=== PATIENT | female | born 1945 | race Caucasian/White ===

== ENCOUNTER 2017-07-23 15:44 | Inpatient (IN) | payer OTHER ==
[~2017-07-23] VITALS: Ht 149.9 cm; Wt 77.0 kg
--- NOTE | ~2017-07-23 | DS ---
Unit #: [id number] #: [id number] Patient: MODESTA CAM [id number] [address] [place], [place] [address] [id number] I MR#: [id number] NAME: MODESTA CAM ROOM: 563 Age: 72 Sex: F Admission Date: 07/23/2017 : 1945 Discharge Date: 07/28/2017 Attending Physician: Jason Corona M.D. Primary Care Physician: Leona Lanier M.D. DISCHARGE SUMMARY DISCHARGE DIAGNOSES 1. Acute respiratory failure hypoxic. 2. Bronchopneumonia community acquired. 3. Acute exacerbation of congestive heart failure. 4. Bilateral pleural effusions. 5. Hypokalemia. 6. Diabetes mellitus, uncontrolled. HOSPITAL COURSE The patient is a 72-year-old woman with a history significant for congestive heart failure, and diabetes mellitus uncontrolled. She presented to the hospital with symptoms of shortness of breath and cough and was found to be hypoxic in the emergency room. The patient had a CAT scan of her lungs that demonstrated nodular opacities, which were also seen on her chest radiographs most consistent with multifocal areas of bronchopneumonia throughout the right lung and consolidation on the right lower lobe. During her admission, the patient was acutely treated with Rocephin and azithromycin for community-acquired pneumonia. During her admission, the patient had echocardiogram that demonstrated an ejection fraction of 40% to 45%. The patient is unable to take BELIA inhibitors due to angioedema. The patient was diuresed with IV Lasix. With improvement in her lower extremity edema, her Coreg was discontinued due to it being nonselective and concern for bronchoconstriction. She will be changed to low dose metoprolol. Her shortness of breath improved with bronchodilators and glucocorticoids. During her admission, she remained hypoxic requiring continuous oxygen. The patient had home oxygen evaluation, ambulation on room air demonstrated oxygen saturation of 82%. The patient will require home O2 continuous at 3 L per minute. Also during her admission, the patient's diabetes mellitus was uncontrolled and slowly improved with tapering dose of glucocorticoids. The patient's pioglitazone was discontinued. The patient will be discharged on Lantus 10 units subcutaneous at bedtime and glyburide 2.5 mg b.i.d. a.c. meals. During her admission, Pulmonary was consulted to help manage her acute hypoxic respiratory failure. Currently, the patient's breathing has improved. The patient's vitals are stable. The patient will be discharged home today. DISCHARGE MEDICATIONS Paroxetine 20 mg p.o. daily, trazodone 50 mg p.o. at bedtime, prednisone 20 mg p.o. daily for 5 days, Tylenol 650 mg p.o. q.6 p.r.n. for pain or fever, furosemide 40 mg p.o. daily, Humibid LA 600 mg p.o. b.i.d., simvastatin 20 mg p.o. daily, allopurinol 100 mg p.o. daily, aspirin 81 mg Unit #: [id number] #: [id number] Patient: BEULAH CAMYCE A p.o. daily, Protonix 40 mg p.o. daily, Symbicort inhaler 2 puffs b.i.d., azithromycin 500 mg 1 tablet p.o. once daily for 4 days, 500 mg 1 tablet p.o. b.i.d. for 5 days, glyburide 2.5 mg 1 tablet p.o. b.i.d. a.c. meals, Lantus Pen 10 units subcutaneous q.h.s., metoprolol succinate 25 mg half tablet p.o. once daily. DISCHARGE INSTRUCTIONS The patient is to follow up with her primary care physician. Recommend followup CAT scan in 2 months to evaluate for resolution of pulmonary nodules suspected to be bronchopneumonia. Pulmonary consultation followup. Dictated by... Lupe Hirsch/abigail TD: 07/31/2017 08:54 JOB #: [id number] DISCHARGE SUMMARY Page 1 of 1 X X DISCHARGE SUMMARY
--- NOTE | ~2017-07-23 | CO ---
Unit #: [id number] #: [id number] Patient: MODESTA NORRIS [id number] [address] [place], [place] [address] [id number] I MR#: [id number] NAME: MODESTA NORRIS ROOM: 563 Age: 72 Sex: F Admission Date: 07/23/2017 : 1945 Attending Physician: Jason Corona Primary Care Physician: Leona Lanier M.D. Consultation Date: 07/25/2017 CONSULTATION REPORT REASON FOR CONSULTATION Pneumonia. HISTORY OF PRESENT ILLNESS A 72-year-old female, who I have known through taking care of multiple family members, presents with weakness, malaise, and nonproductive cough. In the emergency room, she was found to have evidence of pneumonia. I do not see the ER face sheet quite frankly. Chest x-ray revealed patchy infiltrates. CT scan revealed multifocal pneumonia primarily on the right and we were asked to evaluate the patient. She has had a nonproductive cough for over a year and was diagnosed with COPD. She apparently had a chest x-ray approximately 6 months ago, which she was told was "negative." She was given nebulized bronchodilators at home, which would help with her shortness of breath and cough. Over the last several weeks, she got worse with increasing malaise and fatigue. The sputum production was negligible. Denied chest pain, documented fever, or hemoptysis. She would have occasional wheezing. PAST MEDICAL HISTORY Remarkable for a diagnosis of COPD, details unclear; diabetes; hypertension; hyperlipidemia. She denies previous diagnosis of heart disease. MEDICATIONS At home according to EHR; aspirin, Coreg, Lasix, Norvasc, insulin, Paxil, Protonix, simvastatin, trazodone, allopurinol, Actos. She does have a nebulizer at home, but no oxygen. ALLERGIES Sulfa and codeine. SOCIAL HISTORY She is a never smoker. She lives at home with family. She does have a Chihuahua. No other pets. There have been no travel outside of the region and certainly, no international travel. She does not have any hobbies other than reading. 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 She has not been around any sick contacts that she is aware of. REVIEW OF SYSTEMS As above and no chest pain, palpitations, abdominal pain, melena, hematochezia, hematuria, or dysuria. She has noted significant swelling of her lower extremities. Again, no fever, but she would have periods of Unit #: [id number] #: [id number] Patient: MODESTA NORRIS being hot and chilled. She does snore and she was tested for sleep apnea many, many years ago and was told that it was "negative." Further review of systems as above are negative. PHYSICAL EXAMINATION GENERAL: Reveals a patient, who is in no acute distress on low-flow nasal cannula oxygen. VITAL SIGNS: She is afebrile. Pulse 70, respiratory rate is 20, blood pressure 120/52, height 4 feet 11, weight 175 pounds. BMI is 35. HEENT: Pupils equal, round, and reactive to light. Sclerae anicteric. Head atraumatic. NECK: Supple. No supraclavicular or cervical adenopathy appreciated. Mucous membranes moist. She does have natural teeth. CHEST: Mildly prolonged expiratory phase. Some scattered rhonchi, but quite frankly much more clear than I participated from her CT scan. CARDIAC: Reveals regular rate and rhythm. Distant heart tones. Soft murmur. ABDOMEN: Soft and nontender. No hepatomegaly or rebound. EXTREMITIES: Reveal no clubbing or cyanosis. Only trace edema now. No calf tenderness. SKIN: Warm and dry without rash or diaphoresis. NEUROLOGIC: Grossly intact. No focal motor or sensory deficits noted. DIAGNOSTIC STUDIES LABORATORY RESULTS: BUN is 19, creatinine is 1.0. BNP is 363. Lactic acid 1.1. Her procalcitonin was negative. INR normal. Cardiac enzymes normal. White blood cell count 8.7, hemoglobin 10.3, platelet count 267. Urinalysis; glucosuria, proteinuria. No significant pyuria or hematuria. Blood cultures were negative. She stated she has sputum collected, but I did not see it in the EHR. Urine is no growth. IMAGING STUDIES: Chest x-ray, nodular densities primarily on the right. CT scan confirms these densities some have air bronchograms. There are small pleural effusions right greater than left. IMPRESSION 1. Abnormal CAT scan and chest x-ray likely pneumonia, suspect atypical. Doubt vasculitis, inflammatory lung disease etc. Could represent some degree of asymmetric pulmonary edema. 2. Possible chronic obstructive pulmonary disease with history of wheezing, improvement with nebulized bronchodilators. 3. Likely obstructive sleep apnea with obesity and snoring. 4. Left ventricular dysfunction with a recent echocardiogram with an EF of 40% to 45%. 5. Pulmonary hypertension with right ventricular systolic pressure estimated at 45 multifactorial likely type 1, type 2. 6. Left ventricular dysfunction. 7. Diabetes and hypertension etc. PLAN Agree with current antibiotics. Oxygen maintain adequate saturations. I will check Legionella and strep urinary antigens. I will ask for respiratory panel pathogen, although at this institution, the results that usually return very late, but may add to data if hospitalization is prolonged. Nebulized bronchodilators and I will add a brief course of prednisone. Certainly, if her infiltrates do not clear, she will need further investigation. She would benefit from outpatient PFTs and likely a sleep study. Unit #: [id number] #: [id number] Patient: MODESTA NORRIS Thank you very much for allowing me to participate in the care of Ms. Norris. Dictated by... Eric York M.D. GIA/abigail TD: 07/26/2017 13:55 JOB #: [id number] CC: Leona Lanier M.D. CONSULTATION REPORT Page 1 of 1 X Eric York MD X CONSULTATION REPORT
--- NOTE | ~2017-07-23 | CR63 ---
[facility] A Service of [facility] RADIOLOGY TEXT RESULTS PATIENT: MODESTA CAM LOCATION: [facility] 56-01 : 43 UNIT #: [id number] AGE: [address]: ERICK JEAN-BAPTISTE V SEX: F ORDER DR: [id number] [facility] [address] [place], [place] [address] [id number] I MR#: [id number] Acc #: [id number] NAME: MODESTA CAM : 1945 SEX: F STUDY DATE/TIME: 07/27/2017 12:21 UNIT: [facility] ROOM: [facility] STUDY DESCRIPTION: CR Chest 2 View Attending Physician: Erick Jean-Baptiste M.D. Ordering Physician: Eric York M.D. Primary Care Physician: Leona Lanier M.D. MEDICAL IMAGING REPORT This report is preliminary unless electronic signature is present EXAM Two views chest 07/27/2017 HISTORY Short of air, pneumonia, weakness, cough, one week TECHNIQUE AP radiograph of the chest is presented. COMPARISON 07/23/2017, and CT 07/24/2017 FINDINGS Stable cardiac enlargement. Lung volumes moderate. Significantly decreased airspace disease in the right mid and lower lung zones with some residual linear presumed atelectasis at the right lung base. Probable trace right effusion. Calcified right granulomata, but no suspicious nodule. Small left pleural effusion more pronounced than on prior examination. Patchy airspace disease left lung base probably stable to slightly worsened. Consider components of pneumonia and atelectasis. Follow up to resolution recommended. The left mid to upper lung zone is clear and there is no pneumothorax. Calcified granulomata in the left lung as well. No acute bony abnormality. Dictated by... Iban Riley M.D. THIS IS AN ELECTRONICALLY VERIFIED REPORT Iban Riley M.D. at 07/29/2017 10:02 PM JSK/to [facility] A Service [facility] RADIOLOGY TEXT RESULTS PATIENT: MODESTA CAM [facility]ATION[facility] [address] [facility] [id number] : [birth year] UNIT #: [id number] AGE: [address]: ERICK JEAN-BAPTISTE V SEX: F ORDER DR: TD: 07/27/2017 21:57 JOB #: [id number] MEDICAL IMAGING REPORT Page 1 of 1 COPY
--- NOTE | ~2017-07-23 | HP ---
Unit #: [id number] #: [id number] Patient: MODESTA CAM [id number] [place] [id number] [facility]. [place], [place] [address] [id number] I MR#: [id number] NAME: MODESTA CAM. ROOM: 563 Age: 72 Sex: F Admission Date: 07/23/2017 : 1945 Attending Physician: Marcia Crenshaw M.D. Primary Care Physician: Leona Lanier M.D. HISTORY AND PHYSICAL CHIEF COMPLAINT Short of air. HISTORY OF PRESENT ILLNESS The patient is a 72-year-old female with a past medical history of diabetes, hypertension, hyperlipidemia, COPD, who presented to the emergency department for evaluation of the above. The patient states that she has had a three-day history of increasing shortness of breath and nonproductive cough. She states that she has had chills but no documented fever. She denies any chest pain. She has had two to three pillow orthopnea that is a new problem. She has also had paroxysmal nocturnal dyspnea, as well as increased lower extremity swelling. She denies any change in her weight. She states that she has had dyspnea on exertion when walking across the room. In the emergency department, initial oxygen saturation was 86% on room air. Chest x-ray shows bibasilar infiltrates with trace bilateral pleural effusion, as well as two nodular opacities involving the right lung. Potassium is 3.1 and glucose 262. BNP is 363. She was given Rocephin and azithromycin in the emergency department. She is being admitted to [facility] for evaluation and further treatment. PAST MEDICAL HISTORY 1. Admission to [facility] in 2016 for hypoglycemia (no records). 2. The patient was seen at [facility] here [facility] on June 04, 2012, for a left heel ulcer. 3. Diabetes. 4. Hypertension. 5. Hyperlipidemia. 6. COPD, not on home oxygen and not routinely followed by a biomass production manager. 7. Echocardiogram July 27, 2010, showed an ejection fraction of 55% to 60% with no regional wall abnormalities. Mild concentric left ventricular hypertrophy was noted, as well as mild mitral regurgitation and mild tricuspid regurgitation. Right ventricular systolic pressure was normal. PAST SURGICAL HISTORY Cholecystectomy. SOCIAL HISTORY The patient lives with her sister. There is no tobacco or alcohol use. She walks with a cane. Her code status is a Full Code. Unit #: [id number] #: [id number] Patient: MODESTA CAM A FAMILY HISTORY Notable for her mother having pancreatic cancer. Her dad had "heart problems." Her sister has COPD. ALLERGIES Sulfa and codeine. HOME MEDICATIONS 1. Aspirin 81 mg daily. 2. Coreg 12.5 mg b.i.d. 3. Lasix 40 mg daily. 4. Norvasc 10 mg daily. 5. Novolin unknown dose. 6. Paxil 20 mg daily. 7. Protonix 40 mg daily. 8. Simvastatin 20 mg daily. 9. Trazodone 50 mg daily. 10. Allopurinol 100 mg daily. 11. Actos 45 mg daily. REVIEW OF SYSTEMS A complete review of systems is negative except as indicated in the HPI. The patient denies any recent change in medications. She states that she was started on Actos about three months ago. The patient states that her blood sugars are typically in the 200s. PHYSICAL EXAMINATION VITAL SIGNS: Temperature is 98.4, pulse 72, respirations 24, blood pressure 152/60, oxygen saturation initially 86% on room air, now 95% on two liters. GENERAL: The patient is a female who is awake, alert, and in no acute distress. HEENT: Head is atraumatic. Mucous membranes are moist. NECK: Supple. Trachea is midline. CARDIOVASCULAR: Regular rate and rhythm. LUNGS: Demonstrate decreased breath sounds in the bases. Breathing is not labored with conversation. ABDOMEN: Soft and nontender with bowel sounds present in all four quadrants. EXTREMITIES: Nontender. She does have 2+ edema. NEUROLOGIC: The patient is awake and alert. She follows commands. PSYCHIATRIC: Mood and affect are normal. The patient is cooperative. SKIN: Skin of examined areas is warm and dry. DIAGNOSTIC STUDIES LABORATORY: Complete blood count notable for hemoglobin and hematocrit of 11.4 and 33.7, respectively. INR is 1.1. Troponin is less than 0.05. Lactic acid is 1.1. Comprehensive metabolic panel notable for sodium of 134 that corrects when glucose of 262 is accounted for, potassium is 3.1, alkaline phosphatase 94. BNP is 363. IMAGING: Chest x-ray shows bibasilar infiltrates concerning for pneumonia with trace bilateral pleural effusions and cardiomegaly. There are two nodular opacities involving the right lung. CARDIOLOGY: EKG shows sinus rhythm with first degree AV block and a rate of 69 beats per minute. Unit #: [id number] #: [id number] Patient: MODESTA CAM ASSESSMENT The patient is a 72-year-old female with: 1. Acute respiratory failure, hypoxic. 2. Pneumonia, community acquired. The patient received Rocephin and azithromycin in the emergency department. 3. Possible congestive heart failure. The patient had an echocardiogram in 2009 that showed a normal ejection fraction. She was started on Actos three months ago which could be contributing. 4. Bilateral pleural effusions. 5. Hypokalemia with potassium of 3.1. 6. Normocytic anemia. The patient's hemoglobin is 11.4 today. It was 12.6 on July 03, 2015. 7. Diabetes. 8. Hypertension. 9. Hyperlipidemia. 10. Chronic obstructive pulmonary disease, not on home oxygen and not followed by a biomass production manager. 11. Nodular densities on chest CT. PLAN 1. Admit to intermediate level. 2. Healthy-heart, consistent carb diet if passes bedside swallow. 3. Supplemental oxygen 2-4 liters to maintain saturations greater than 92%. 4. DuoNebs q.4 hours p.r.n. 5. Mucinex 600 mg p.o. b.i.d. 6. Blood cultures x2. 7. Sputum culture and sensitivity. 8. Procalcitonin level. 9. Rocephin and azithromycin for community-acquired pneumonia pending further workup. 10. CT of the chest with IV contrast for further evaluation of nodular opacities in the lungs. 11. A 2D echo for further evaluation of possible CHF. 12. Lasix 40 mg IV daily with first dose now. 13. Strict I/Os. 14. Daily weights. 15. TSH. 16. Hold Actos. 17. Serial cardiac enzymes. 18. Replace potassium. 19. Check magnesium. 20. Hemoglobin A1c. 21. Low-dose sliding scale insulin with Accu-Cheks. 22. Check urinalysis. 23. Repeat labs in the morning. 24. Lovenox for DVT prophylaxis. 25. Additional workup and consultants based on above. 1. Dictated by Marcia Crenshaw M.D. AW/toño TD: 07/23/2017 20:45 JOB #: [id number] Unit #: [id number] #: [id number] Patient: MODESTA CAM HISTORY AND PHYSICAL Page 1 of 1 X Marcia Crenshaw MD HISTORY AND PHYSICAL
--- NOTE | ~2017-07-23 | CR72 ---
[facility] A Service of [facility] RADIOLOGY TEXT RESULTS PATIENT: MODESTA CAM [facility]- : 43 UNIT #: [id number] AGE: [address]: Marcia Crenshaw MD SEX: F ORDER DR: [id number] [facility] [address] [place], [place] [address] [id number] I MR#: [id number] Acc #: [id number] NAME: MODESTA CAM. : 1945 SEX: F STUDY DATE/TIME: 07/23/2017 16:41 UNIT: CEDOF ROOM: 85373 STUDY DESCRIPTION: CR Chest Single View Portable Attending Physician: Marcia Crenshaw M.D. Ordering Physician: Ubaldo Leija M.D. Primary Care Physician: Leona Lanier M.D. MEDICAL IMAGING REPORT This report is preliminary unless electronic signature is present EXAM Frontal chest 07/23/2017 INDICATIONS A 72-year-old female with shortness of air, cough, congestion symptoms 3 days. TECHNIQUE Frontal chest compared 11/01/1935. FINDINGS Cardiac silhouette borderline in size. Lung volumes are low with bronchovascular crowding. There are patchy areas of consolidation in both lung bases most likely reflecting pneumonia. In addition, there is a nodular area of consolidation measuring 2.1 cm in the lower lung zone on the right and potential additional nodule measuring 12 mm in the midlung zone on the right. These may be inflammatory or infectious in nature as well, but underlying parenchymal nodules could present similarly. Suggest further assessment with a chest CT when clinically indicated for better assessment. Small effusions. No pneumothorax. IMPRESSION 1. Cardiomegaly with low lung volumes and bibasilar infiltrates most characteristic of pneumonia until proven otherwise. At least trace to small bilateral effusions. Follow up to clearing is recommended. 2. There are 2 potential nodular opacities in the right lung, one measuring 2.1 cm and a second measuring 1.2 cm. This would be better assessed with CT when clinically appropriate. Dictated by... Esdras Valdes M.D. [facility] A Service of [facility] RADIOLOGY TEXT RESULTS PATIENT: MODESTA CAM LOCATION: [place] [address] : [birth year] UNIT #: [id number] AGE: [address]: Marcia Crenshaw MD SEX: F ORDER DR: THIS IS AN ELECTRONICALLY VERIFIED REPORT Esdras Valdes M.D. at 07/23/2017 11:16 PM Natasha TD: 07/23/2017 20:04 JOB #: [id number] MEDICAL IMAGING REPORT Page 1 of 1 COPY
--- NOTE | ~2017-07-23 | CT57 ---
[facility] A Service of [facility] / [facility] RADIOLOGY TEXT RESULTS PATIENT: MODESTA CAM LOCATION: [facility] [id number] : 41 UNIT #: [id number] AGE: [address]: ERICK JEAN-BAPTISTE V SEX: F ORDER DR: [id number] [facility] [address] [place], [place] [address] [id number] MR#: [id number] Acc #: [id number] NAME: MODESTA CAM. : 1945 SEX: F STUDY DATE/TIME: 07/24/2017 12:14 UNIT: [facility] ROOM: [facility] STUDY DESCRIPTION: CT Chest Wo Cont Attending Physician: Erick Jean-Baptiste M.D. Ordering Physician: Rocio Huggins M.D. Primary Care Physician: Leona Lanier M.D. MEDICAL IMAGING REPORT This report is preliminary unless electronic signature is present EXAM CT chest without IV contrast COMPARISON CT abdomen and pelvis dated November 25, 2012. INDICATION 72-year-old female with dyspnea for 3 days. Nodular opacities in the right lung on chest radiograph performed yesterday. Nonproductive cough for 3 days and lower extremity edema for [address] imaging of the chest was performed without IV contrast. Coronal and sagittal reformats were constructed. This CT exam was performed with one or more of the following radiation dose reduction techniques: automatic exposure control, adjustment of mA and/or kV according to patient size, and iterative reconstruction. FINDINGS Lack of IV contrast limits evaluation of adenopathy and vasculature. There is mild diffuse body wall edema. 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 Degenerative changes at the costomanubrial junctions bilaterally. No acute fractures or suspicious osseous lesions. No evidence of adenopathy in the chest. There is marked cardiomegaly. There are multivessel coronary artery calcifications. There is a small right and trace left pleural effusion. There are calcified hilar lymph nodes bilaterally and some partly calcified subcarinal lymph nodes. Imaging was performed in the expiratory phase. Airways appear patent. There is no evidence of pneumothorax. There are dense bronchoalveolar distribution opacities throughout the right upper lobe and extending into the right middle lobe and lesser extent the superior segment of the right lower STS. [facility] A Service of [facility] / [facility] RADIOLOGY TEXT RESULTS PATIENT: MODESTA CAM LOCATION: [facility] [id number] : [birth year] UNIT #: [id number] AGE: [address]: ERICK JEAN-BAPTISTE V SEX: F ORDER DR: tacho. Findings are most consistent with bronchopneumonia. These densities are accounting for the findings on chest radiograph performed yesterday. More discrete 5 mm right apical nodular density is seen with a separate discrete 5 mm right apical nodule. Calcified granulomas are noted in the right lung. There is consolidation in the dependent right lower lobe which may reflect atelectasis given that there is some volume loss. Additional site of multifocal pneumonia cannot be excluded. There are findings most keeping with atelectasis in the left lower lobe. Detailed evaluation of the lungs is limited by motion. Normal caliber of the thoracic aorta which is diffusely calcified. There are dense calcifications also involving the origins of the celiac, superior mesenteric and bilateral renal arteries. Calcified granulomas in the liver and spleen. Normal caliber of the main pulmonary artery. No acute findings in the imaged upper abdomen. IMPRESSION 1. Nodular opacities seen on chest radiograph are most consistent with multifocal areas of bronchopneumonia seen throughout the right lung. There is also consolidation in the right lower lobe where there is a small right pleural effusion and this consolidation could reflect atelectasis or an additional focus of pneumonia. There are at least 2 discrete nodular opacities measuring up to 5 mm in the right pulmonary apex which may be infectious or inflammatory. CT chest followup should be considered in 3 months without IV contrast to ensure stability, regression or resolution of the current findings in the lungs. 2. Trace left pleural effusion with left basilar atelectasis. 3. Multivessel coronary artery calcifications as well as extensive arterial calcifications of the abdomen and pelvis involving multiple aortic branch vessels as described. 4. Severe cardiomegaly. Dictated by... David Freire M.D. THIS IS AN ELECTRONICALLY VERIFIED REPORT David Freire M.D. at 07/31/2017 4:40 PM MINE/margot TD: 07/24/2017 15:18 JOB #: [id number] MEDICAL IMAGING REPORT Page 1 of 1 COPY
--- NOTE | ~2017-07-23 | EKG ---
PATIENT: MODESTA CAM UNIT #: [id number] Ventricular Rate: 69 BPM Atrial Rate: 69 BPM P-R Interval: 230 ms QRS Duration: 100 ms Q-T Interval: 412 ms QTC Calculation(Bezet): 441 ms P [place]: 46 degrees Calculated R [place]: 2 degrees Calculated T [place]: 71 degrees Diagnosis Line: Sinus rhythm with 1st degree A-V block Diagnosis Line: Low voltage QRS Diagnosis Line: Borderline ECG Diagnosis Line: When compared with ECG of 18-FEB-2015 18:19, Diagnosis Line: Nonspecific T wave abnormality has replaced Diagnosis Line: inverted T waves in Lateral leads Diagnosis Line: Confirmed by FERNANDO BLACKMON MD ([id number]) on 07/24/2017 Diagnosis Line: 2:03:49 PM INTERPRETING MD: LORRI QUIÑONES
[~2017-07-23 15:44] MED LIST: ACYCLOVIR PO; ALLERGY10 M1 PO; AMITRIPTYLINE H25 MG PO; AMITRYPTYLINE PO; ANTIVERT PO; BENTYL20 MG PO; BUMEX PO; CATAPRES-TTS-10.1 M1 EXT; CETIRIZINE HCL10 MG PO; COZAAR PO; DARVOCET A500 T1 TA1 PO; FLONASE16 GM; FUROSEMIDE40 MG PO; GABAPENTIN300 MG PO; GLUCOTROL PO; GLYNASE PO; INSULIN; KCL PO; KEFLEX500 MG PO; LANTUS100 U/M1 SQ; LANTUS100 U/ML SUBQ; LASIX PO; LEVAQUIN PO; LISINOPRIL2.5 MG PO; METFORMIN PO; NEURONTIN PO; NEURONTIN300 MG PO; NYSTATIN15 GM OINT TOP; OMEPRAZOLE40 MG PO; PAROXETINE HCL20 MG PO; PAXIL PO; POTASSIUM CHLO10 ME1 PO; PRILOSEC PO; PROPRANOLOL HCL80 M1 PO; PROPRANOLOL PO; SIMVASTATIN40 MG PO; TUSSIONEX PENN473 ML PO; TYLOX 5/500 CAP1 CAP PO; ZOCOR PO
[2017-07-23 16:52] LABS: BASOPHIL# 0.1 X10e3 (0-0.3); BASOPHIL% 0.5 % (0-2.5); EOSINOPHIL# 0.1 X10e3 (0-0.7); EOSINOPHIL% 1.4 % (0.0-7.0); HEMATOCRIT 33.7 % (35.0-45.0); HEMOGLOBIN 11.4 gm/dL (12.0-16.0); LYMPHOCYTE# 1.6 X10e3 (1.0-3.5); MEAN CELL VOLUME 89.4 FL (83-96); MEAN CORPUSCULAR HEMOGLOBIN 30.3 PG (28-34); MEAN CORPUSCULAR HGB CONC 33.8 g/dL (30-36); MEAN PLATELET VOLUME 8.3 FL (6.5-11.5); MONOCYTE# 0.7 X10e3 (0-1.0); MONOCYTE% 7.3 % (3.0-12.0); NEUTROPHIL% 73.8 % (40-75); PLATELET COUNT 289 X10e3 (140-420); RED BLOOD COUNT 3.76 X10e (3.90-5.30); RED CELL DISTRIBUTION WIDTH 15.8 % (11.0-15.5); WHITE BLOOD COUNT 9.6 X10e3 (4.0-10.5)
[2017-07-23 16:53] LABS: DIFF IND NO
[2017-07-23 17:02] LABS: INR 1.1; PARTIAL THROMBOPLASTIN TIME 34.7 SECONDS (23.5-31.3); PROTHROMBIN TIME (PATIENT) 11.4 SECONDS (10.0-11.7)
[2017-07-23 17:07] LABS: POC - TROPONIN <0.05 ng/mL (<=0.05)
[2017-07-23 17:16] LABS: ALBUMIN SERUM 3.6 g/dL (3.5-5.0); BILIRUBIN, DIRECT 0.2 mg/dL (0.0-0.2); BILIRUBIN,INDIRECT 0.8 mg/dL (0.0-0.9); CALCIUM SERUM 8.8 mg/dL (8.4-10.2); GLOM FILT RATE Estimated 55.5 mL/min (>60); POTASSIUM 3.1 mmol/L (3.5-5.1); PROTEIN TOTAL SERUM 7.4 g/dL (6.0-8.3)
[2017-07-23 18:46] LABS: POC - CKMB <1.0 ng/mL (0.0-7.9); POC - TROPONIN <0.05 ng/mL (<=0.05)
[2017-07-23] MEDS ORDERED: ZYLOPRIM PO (21:09)
[2017-07-23] MEDS ORDERED: CARVEDILOL12.5 MG PO (21:09)
[2017-07-23] MEDS ORDERED: LASIX PO (21:09)
[2017-07-23] MEDS ORDERED: PIOGLITAZONE45 MG PO (21:10)
[2017-07-23] MEDS ORDERED: PROTONIX PO (21:10)
[2017-07-23] MEDS ORDERED: DESYREL50 MG PO (21:10)
[2017-07-23] MEDS ORDERED: ASPIRIN EC81 M1 PO (21:11)
[2017-07-23] MEDS ORDERED: AMLODIPINE BESY10 MG PO (21:11)
[2017-07-23] MEDS ORDERED: ZOCOR20 MG PO (21:12)
[2017-07-23] MEDS ORDERED: SIMVASTATIN20 MG PO (21:14)
[2017-07-23] MEDS ORDERED: PAROXETINE HCL20 MG PO (21:16)
[2017-07-24 02:47] LABS: CK TOTAL 37 IU/L (26-140)
[2017-07-24 05:43] LABS: BASOPHIL% 0.5 % (0-2.5); EOSINOPHIL# 0.2 X10e3 (0-0.7); EOSINOPHIL% 2.4 % (0.0-7.0); HEMATOCRIT 30.5 % (35.0-45.0); HEMOGLOBIN 10.3 gm/dL (12.0-16.0); LYMPHOCYTE# 1.7 X10e3 (1.0-3.5); LYMPHOCYTE% 19.7 % (17.0-45.0); MEAN CORPUSCULAR HEMOGLOBIN 30.3 PG (28-34); MEAN CORPUSCULAR HGB CONC 33.7 g/dL (30-36); MEAN PLATELET VOLUME 8.6 FL (6.5-11.5); MONOCYTE# 0.8 X10e3 (0-1.0); MONOCYTE% 9.1 % (3.0-12.0); NEUTROPHIL% 68.3 % (40-75); PLATELET COUNT 267 X10e3 (140-420); RED BLOOD COUNT 3.38 X10e (3.90-5.30); RED CELL DISTRIBUTION WIDTH 15.6 % (11.0-15.5); WHITE BLOOD COUNT 8.7 X10e3 (4.0-10.5)
[2017-07-24 05:50] LABS: DIFF IND NO
[2017-07-24 06:47] LABS: ALBUMIN SERUM 3.1 g/dL (3.5-5.0); BILIRUBIN,TOTAL 0.2 mg/dL (0.2-2.0); CALCIUM SERUM 8.5 mg/dL (8.4-10.2); GLOM FILT RATE Estimated 55.5 mL/min (>60); MAGNESIUM 1.8 mg/dL (1.6-3.0); POTASSIUM 3.6 mmol/L (3.5-5.1); PROTEIN TOTAL SERUM 6.2 g/dL (6.0-8.3)
[2017-07-24 07:02] LABS: CK TOTAL 39 IU/L (26-140)
[2017-07-24 15:17] LABS: URINE SOURCE CLEAN CATCH
[2017-07-24 15:35] LABS: URINE APPEARANCE CLEAR; URINE BILIRUBIN NEG (NEG); URINE BLOOD NEG (NEG); URINE COLOR YELLOW; URINE GLUCOSE 100 MG/DL (NEG); URINE KETONE NEG (NEG); URINE LEUKOCYTE ESTERASE NEG (NEG); URINE NITRATE NEG (NEG); URINE PH 5.5 (5-8); URINE PROTEIN 1+ (NEG); URINE SPECIFIC GRAVITY 1.014 (1.003-1.035); URINE UROBILINOGEN 0.2 MG/DL (NEG)
[2017-07-24 15:38] LABS: URBCS1 AUWI 0-2 /[HPF] (0-2); URINE BACTERIA AUWI NEG (NEGATIVE); URINE SQUAMOUS EPITHELIAL CELL NONE SEEN /[HPF]; UWBCS1 AUWI 0-2 (0-5)
[2017-07-26 07:23] LABS: CALCIUM SERUM 8.6 mg/dL (8.4-10.2); GLOM FILT RATE Estimated 55.5 mL/min (>60); POTASSIUM 4.4 mmol/L (3.5-5.1)
[2017-07-26 13:01] LABS: LEGIONELLA AG URINE NEG (NEG)
[2017-07-27 06:44] LABS: BUN/CREATININE RATIO 22.72; CALCIUM SERUM 9.1 mg/dL (8.4-10.2); CREATININE SERUM 1.1 mg/dL (0.6-1.4); GLOM FILT RATE Estimated 49.4 mL/min (>60); POTASSIUM 4.2 mmol/L (3.5-5.1)
[2017-07-28 12:53] LABS: CALCIUM SERUM 9.4 mg/dL (8.4-10.2); GLOM FILT RATE Estimated 55.5 mL/min (>60); POTASSIUM 3.8 mmol/L (3.5-5.1)
[2017-07-28] MEDS ORDERED: SYMBICORT INH (13:57)
[2017-07-28] MEDS ORDERED: ZITHROMAX PO (13:58)
[2017-07-28] MEDS ORDERED: CEFTIN PO (13:59)
[2017-07-28] MEDS ORDERED: PREDNISONE PO (14:00)
[2017-07-28] MEDS ORDERED: METOPROLOL SUCC25 MG PO (14:01)
[2017-07-28] MEDS ORDERED: LANTUS SOL100 UNIT/1 SUBQ (14:03)
[2017-07-28] MEDS ORDERED: GLYBURIDE2.5 MG PO (14:04)
[2017-07-28] MEDS ORDERED: ACETAMINOPHEN PO (14:06)
== END 2017-07-28 16:30 | disposition home or self-care (01) | DRG 189 ==
LOC: CED 15:44 → CEDOF 18:40 → C5C 18:40 → CEDOF 19:00 → CED 19:00 → C5C 20:07 → CEDOF 20:07 → C5C 07-24 07:05
PROVIDERS: Emergency Medicine; Family Medicine; Internal Medicine
PROC: B24BYZZ Ultrasonography of Heart with Aorta using Other Contrast (ICD-10-PCS; principal; 2017-07-24)
DX: J96.01 Acute respiratory failure with hypoxia (principal); J18.9 Pneumonia, unspecified organism; I50.21 Acute systolic (congestive) heart failure; E11.65 Type 2 diabetes mellitus with hyperglycemia; I27.2 Other secondary pulmonary hypertension; I11.0 Hypertensive heart disease with heart failure; J44.9 Chronic obstructive pulmonary disease, unspecified; J90 Pleural effusion, not elsewhere classified; D64.9 Anemia, unspecified; E78.5 Hyperlipidemia, unspecified; E87.6 Hypokalemia; Z79.82 Long term (current) use of aspirin; Z88.2 Allergy status to sulfonamides; G47.33 Obstructive sleep apnea (adult) (pediatric); E66.9 Obesity, unspecified; R19.7 Diarrhea, unspecified; Z90.49 Acquired absence of other specified parts of digestive tract
CPT/HCPCS: 71010; 71020; 71250; 80048; 80053; 80076; 81003; 82308; 82550; 82553; 82947; 83036; 83605; 83735; 83880; 84443; 84484; 85025; 85610; 85652; 85730; 86140; 87040; 87070; 87086; 87205; 87449; 87633; 87899; 93005; 93306; 94640; 94664; 94760; 99291; J0456; J0696; J1650; J1815; J1940